=== PATIENT | male | born 2000 | race Two or more races ===

== ENCOUNTER 2021-07-28 02:15 | Emergency (ER) | payer SELFPAY ==
[~2021-07-28] VITALS: Ht 172.7 cm; Wt 63.5 kg
[2021-07-28 03:54] VITALS: BP 131/89
== END 2021-07-28 05:24 | disposition left against medical advice (07) ==
LOC: ER 02:15 → EDBD 02:15 → ER 05:24
DX: R51.9 Headache, unspecified (principal); Z53.21 Procedure and treatment not carried out due to patient leaving prior to being seen by health care provider; Y08.89XA Assault by other specified means, initial encounter; Y93.89 Activity, other specified; Y92.89 Other specified places as the place of occurrence of the external cause; Y99.8 Other external cause status
CPT/HCPCS: 70450; 70486